=== PATIENT | male | born 1945 | race Caucasian/White ===

== ENCOUNTER → 2016-06-23 | Outpatient (CLI) | payer MEDICARE ==
[2016-06-23 10:17] LABS: Blood Urea Nitrogen 18 mg/dL (9-20); Non-African American GFR(MDRD) >60 (>60 ml/min/1.73 sqM)
--- NOTE | 2016-06-23 11:01 | CT ---
CTA abdominal aorta with 3-D reconstruction HISTORY: Renal artery aneurysm Contrast: Omni 350/100ml injected. COMPARISON: 04/24/2014 Contrast CTA of the abdominal aorta was performed from the lung apex through t he base of the pelvis. 3-D reconstruction imaging obtained at a separate workstation. CONTRAST CT ABDOMEN FINDINGS- ABDOMINAL AORTA: No evidence for abdominal aortic aneurysm. No dissection. Iliac vessels are ectatic with atherosclerotic changes. Atherosclerotic change of the celiac axis and SMA noted. LIVER/GB- multiple hepatic cysts noted. Gallbladder unremarkable. PANCREAS- No significant abnormality is seen. SPLEEN- No significant abnormality is seen. ADRENALS- No significant abnormality is seen. KIDNEYS/BLADDER- calcified mass retroperitoneum on the right is stable unchanged in size or morpholog y measuring 5.6 x 6.4 cm. Thrombosed renal artery aneurysm in the differential. Kidneys perfuse stephon lly. No evidence for renal mass or hydronephrosis. BOWEL- diverticulosis without diverticulitis. Small bowel normal caliber. GENTIAL ORGANS: Prostatectomy changes. LYMPH NODES- No greater than 1cm abdominal or pelvic lymph nodes are appreciated. OSSEOUS STRUCTURES- degenerative and hypertrophic changes lumbar spine. Sacroiliitis changes noted. F acet arthropathy seen. IMPRESSION- 1. 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
== END | disposition home or self-care (01) ==
LOC: RADCTMAIN 09:40
PROVIDERS: ATTEND Thoracic Surgery (Cardiothoracic Vascular Surgery)
DX: I72.2 Aneurysm of renal artery (principal)
CPT/HCPCS: 82565; 84520; 74175; 36415; Q9967

== ENCOUNTER 2016-07-01 23:22 | Emergency (ER) | payer MEDICARE, OTHER ==
[2016-07-01 23:34] VITALS: BP 167/85; PULSE 51; RESP 18; TEMP 97.7
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
== END 2016-07-01 23:50 | disposition home or self-care (01) ==
LOC: EC 23:22
DX: R42 Dizziness and giddiness (principal); I10 Essential (primary) hypertension; I50.9 Heart failure, unspecified; I25.2 Old myocardial infarction; E78.5 Hyperlipidemia, unspecified; G20 Parkinson's disease; Z86.73 Personal history of transient ischemic attack (TIA), and cerebral infarction without residual deficits; I25.10 Atherosclerotic heart disease of native coronary artery without angina pectoris; Z85.46 Personal history of malignant neoplasm of prostate; Z95.0 Presence of cardiac pacemaker; Z79.82 Long term (current) use of aspirin; F17.200 Nicotine dependence, unspecified, uncomplicated; Z79.899 Other long term (current) drug therapy; Z88.8 Allergy status to other drugs, medicaments and biological substances
CPT/HCPCS: 93005; 99284

== ENCOUNTER 2016-09-19 14:46 | Emergency (ER) | payer MEDICARE, OTHER ==
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
[2016-09-19 16:35] VITALS: BP 130/68; PULSE 84; RESP 20; TEMP 98
== END 2016-09-19 16:20 | disposition home or self-care (01) ==
LOC: EC 14:46
DX: S50.12XA Contusion of left forearm, initial encounter (principal); I10 Essential (primary) hypertension; E78.5 Hyperlipidemia, unspecified; I25.2 Old myocardial infarction; F17.200 Nicotine dependence, unspecified, uncomplicated; Z85.9 Personal history of malignant neoplasm, unspecified; Z86.73 Personal history of transient ischemic attack (TIA), and cerebral infarction without residual deficits; Z79.82 Long term (current) use of aspirin; Z79.899 Other long term (current) drug therapy; Z88.8 Allergy status to other drugs, medicaments and biological substances; W22.09XA Striking against other stationary object, initial encounter; Y93.89 Activity, other specified
CPT/HCPCS: 99282

== ENCOUNTER → 2016-12-02 | Outpatient (CLI) | payer MEDICARE, OTHER ==
--- NOTE | 2016-12-02 10:57 | XR ---
EXAMINATION TYPE: XR lumbar spine 2 or 3V DATE OF EXAM: 12/02/2016 CLINICAL HISTORY: pain TECHNIQUE: Three views of the lumbar spine are submitted. COMPARISON: 12/13/14 FINDINGS: There are 5 lumbar type vertebral bodies identified. The lumbar spine shows satisfactory alignment w ithout evidence of acute fracture or dislocation. Vertebral body heights are within normal limits. Mild degenerative disc space narrowing L4-5 and L5-S1 with facet joint arthropathy. Aneurysm within t he infrarenal abdominal aorta the L2 level. This measures of 4.4 cm AP dimension and appears essentia lly unchanged. IMPRESSION: No acute fracture or dislocation is seen in the lumbar spine. ICD 10 NO FRACTURE, INITIAL EVALUATION
== END | disposition home or self-care (01) ==
LOC: RADXRMAIN 10:36
PROVIDERS: ATTEND Family Medicine
DX: M54.5 Low back pain (principal)
CPT/HCPCS: 72100

== ENCOUNTER 2017-03-20 17:18 | Emergency (ER) | payer MEDICARE, OTHER ==
[2017-03-20 17:38] VITALS: BP 125/76; PULSE 80; RESP 18; TEMP 97.8
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
== END 2017-03-20 18:08 | disposition home or self-care (01) ==
LOC: EC 17:18
DX: K43.9 Ventral hernia without obstruction or gangrene (principal); E78.5 Hyperlipidemia, unspecified; I10 Essential (primary) hypertension; G20 Parkinson's disease; I25.2 Old myocardial infarction; F17.200 Nicotine dependence, unspecified, uncomplicated; Z86.73 Personal history of transient ischemic attack (TIA), and cerebral infarction without residual deficits; Z98.890 Other specified postprocedural states; Z90.49 Acquired absence of other specified parts of digestive tract; Z85.46 Personal history of malignant neoplasm of prostate; Z88.8 Allergy status to other drugs, medicaments and biological substances; Z79.01 Long term (current) use of anticoagulants; Z79.899 Other long term (current) drug therapy
CPT/HCPCS: 99283

== ENCOUNTER 2017-07-13 07:57 | Day surgery (SDC) | payer MEDICARE, OTHER ==
[2017-07-12 09:20] VITALS: BMI 26.6
[~2017-07-13 07:57] MED LIST: LACTATED RINGERS 1,000 ML IV SCH
[2017-07-13 09:18] VITALS: TEMP 97.8
[2017-07-13] MEDS ORDERED: LIDOCAINE 1% INJ 10MG/ML (20 ML MDV) ONE (09:28)
[2017-07-13] MEDS ORDERED: PROPOFOL 10 MG/ML 20 ML VIAL IV ONE (09:28)
[2017-07-13] MEDS ORDERED: GLYCOPYRROLATE 0.2 MG/ML 2 ML VIAL ONE (09:28)
[2017-07-13] MEDS ORDERED: ePHEDrine SULFATE/0.9% NACL/PF 50 MG/5 ML SYRINGE IV ONE (09:28)
[2017-07-13] MEDS ORDERED: GLUCAGON 1 MG/ML VIAL ONE (09:28)
--- NOTE | 2017-07-13 10:03 | P.OP ---
Date of Procedure: 07/13/17 Preoperative Diagnosis: Change in bowel habits Postoperative Diagnosis: Small polyp at 20 cm fulgurated Large internal hemorrhoids Diverticuli Procedure(s) Performed: Colonoscopy Anesthesia: MAC Surgeon: Martha Guzman Estimated Blood Loss (ml): 0 IV fluids (ml): 250 Pathology: none sent Condition: stable Disposition: PACU Indications for Procedure: Change in bowel habits Operative Findings: Small polyp at 20 cm, diverticuli, internal hemorrhoids Description of Procedure: Patient was taken to the endoscopy suite and following sedation rectal exam was performed. Patient was noted to have good sphincter tone no masses. Colonoscope was passed through the anus into the rectum. Was passed through the sigmoid colon up to splenic flexure transverse colon hepatic flexure right colon down to the area of the cecum. Circumferential observation mucosa did not reveal any lesions of concern in the cecum or right colon. No lesions of concern were identified in the transverse colon. As the scope was withdrawn patient was noted to have diverticuli in the sigmoid colon. At 20 cm a small polyp was identified this was fulgurated but unable to be retrieved. Scope was brought down into the rectum where it was retroflexed internal hemorrhoids identified. Approximately 10 minutes were taken to withdraw the scope and fulgurated the polyp. Impression/plan: 1. Diverticuli 2. Large internal hemorrhoids 3. Polypoid change at 20 cm fulgurated Plan: 1. Conservative management of diverticuli and hemorrhoids 2. Repeat scope in 2-3 years secondary to polypoid change
--- NOTE | 2017-07-13 10:04 | P.DS ---
Providers Attending physician: Martha Guzman Primary care physician: Jovon Latham Plan - Discharge Summary New Discharge Prescriptions: No Action Primidone [Mysoline] 75 mg PO HS Hydrochlorothiazide 25 mg PO QAM Carbidopa/Levodopa [Sinemet 25-100 mg] 1 tab PO BID Simvastatin [Zocor] 40 mg PO HS Enalapril [Vasotec] 10 mg PO QAM Apixaban [Eliquis] 5 mg PO BID Omeprazole [PriLOSEC] 40 mg PO QAM Discharge Medication List Carbidopa/Levodopa [Sinemet 25-100 mg] 1 tab PO BID 06/17/15 [History] Enalapril [Vasotec] 10 mg PO QAM 06/17/15 [History] Hydrochlorothiazide 25 mg PO QAM 06/17/15 [History] Primidone [Mysoline] 75 mg PO HS 06/17/15 [History] Simvastatin [Zocor] 40 mg PO HS 06/17/15 [History] Apixaban [Eliquis] 5 mg PO BID 03/20/17 [History] Omeprazole [PriLOSEC] 40 mg PO QAM 04/19/17 [History] Follow up Appointment(s)/Referral(s): Martha Guzman MD [STAFF PHYSICIAN] - 1 Week Activity/Diet/Wound Care/Special Instructions: Do not drive today May start Eliquis tomorrow Discharge Disposition: HOME SELF-CARE
[2017-07-13 10:19] VITALS: RESP 18
[2017-07-13 11:00] VITALS: BP 122/72; PULSE 74
== END 2017-07-13 11:02 | disposition home or self-care (01) ==
LOC: ORWHC2ENDO 07:57
PROVIDERS: ATTEND Surgery
DX: K63.5 Polyp of colon (principal); K64.8 Other hemorrhoids; K57.30 Diverticulosis of large intestine without perforation or abscess without bleeding; I10 Essential (primary) hypertension; J44.9 Chronic obstructive pulmonary disease, unspecified; H91.90 Unspecified hearing loss, unspecified ear; M19.90 Unspecified osteoarthritis, unspecified site; K21.9 Gastro-esophageal reflux disease without esophagitis; E78.5 Hyperlipidemia, unspecified; I25.10 Atherosclerotic heart disease of native coronary artery without angina pectoris; G20 Parkinson's disease; Z79.82 Long term (current) use of aspirin; Z79.01 Long term (current) use of anticoagulants; Z79.899 Other long term (current) drug therapy; Z88.8 Allergy status to other drugs, medicaments and biological substances; Z87.891 Personal history of nicotine dependence; Z86.73 Personal history of transient ischemic attack (TIA), and cerebral infarction without residual deficits; Z85.46 Personal history of malignant neoplasm of prostate; Z95.0 Presence of cardiac pacemaker
CPT/HCPCS: 45388; J1610; J2001; J2704; 45385

== ENCOUNTER → 2017-07-30 | Outpatient (CLI) | payer MEDICARE, OTHER ==
--- NOTE | 2017-07-31 11:09 | CT ---
EXAMINATION TYPE: CT abdomen pelvis w con DATE OF EXAM: 07/30/2017 COMPARISON: Prior CT angiogram of the abdomen 06/23/[address] 11/20/2010 HISTORY: Upper abdominal pain x [address] DLP: 823.2 mGycm Automated exposure control for dose reduction was used. TECHNIQUE: Helical acquisition of images from the lung bases through the pelvis have been completed. CONTRAST: Performed with Oral Contrast and with IV Contrast, patient injected with 100 mL of Isovue M300. FINDINGS: Lead is present in the right ventricle. There are coronary artery calcifications. There is a small hiatal hernia. LUNG BASES: Emphysematous changes are present, there are interstitial changes with honeycombing and s ubpleural locations. No pleural or pericardial effusion. AORTA: No significant abnormality is appreciated. LIVER/GB: Cystic foci are scattered within the liver similar to prior exam. Gallbladder is normal. PANCREAS: No significant abnormality is seen. SPLEEN: No significant abnormality is seen. ADRENALS: No significant abnormality is seen. KIDNEYS: No significant interval change is seen. The retroperitoneal region posterior to the inferior vena cava and adjacent to the aorta again shows a hyperdense focus measuring approximately 5.5 x 6 x 3.3 cm is again noted and is stable. REPRODUCTIVE ORGANS: Probable prior prostatectomy, multiple metallic densities are present deep withi n the pelvis which may represent clips. BOWEL: Multiple small bowel folds show wall thickening in the upper abdomen. There is a tubular stru cture which has been present dating to exam of 2010 within the mesenteric region anterior to the aort a and inferior vena cava and extending into the right lower quadrant which does not fill with contras t and is blind-ending in the midline, distally the lesion has increased in size to approximately 3.2 cm and shows a cystic appearance distally. Diverticular change again noted in the sigmoid colon, diff icult to exclude a mucosal lesion. Suspect there is been right inguinal hernia repair. Colonic interp osition noted anterior to the liver. The stomach again shows questionable abnormal wall thickening. FREE AIR: No Free Air visible. ASCITES: None visible. PELVIC ADENOPATHY: None visualized. RETROPERITONEAL ADENOPATHY: No Retroperitoneal Adenopathy visible. URINARY BLADDER: No significant abnormality is seen. OSSEOUS STRUCTURES: Degenerative disc change at facet arthropathy noted within the lumbar spine.. IMPRESSION: CONSIDER GASTRO-ENTERITIS, ABNORMAL WALL THICKENING OF THE STOMACH MAY BE PRESENT, CONSIDER ENDOSCOP Y. INTERSTITIAL LUNG DISEASE AND EMPHYSEMA. STABLE CALCIFIED PROBABLE RENAL ARTERY ANEURYSM. TUBULAR STRUCTURE AGAIN NOTED WITHIN THE MESENTERY COULD REPRESENT ENTERIC DUPLICATION CYST, MECKEL'S DIVERTI CULUM, MESENTERIC CYST.
== END ==
LOC: RADCTMAIN 14:50
PROVIDERS: ATTEND Surgery
DX: R10.10 Upper abdominal pain, unspecified (principal); J98.2 Interstitial emphysema
CPT/HCPCS: 82565; 84520; 74177; 36415; Q9967

== ENCOUNTER 2017-08-04 03:09 | Emergency (ER) | payer MEDICARE, OTHER ==
[2017-08-04 03:14] VITALS: TEMP 97.7
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
[2017-08-04 03:43] LABS: Basophils # (A) 0.1 k/uL (0-0.2); Basophils % (A) 1 %; Eosinophils # (A) 0.3 k/uL (0-0.7); Eosinophils % (A) 3 %; HCT 47.9 % (39.0-53.0); HGB 16.1 gm/dL (13.0-17.5); Lymphocytes % (A) 24 %; MCH 30.1 pg (25.0-35.0); MCHC 33.7 g/dL (31.0-37.0); MCV 89.4 fL (80.0-100.0); Mean Platelet Volume 8.4; Monocytes # (A) 0.6 k/uL (0-1.0); Monocytes % (A) 7 %; Neutrophils # (A) 5.4 k/uL (1.3-7.7); Neutrophils % (A) 63 %; Platelet Count 206 k/uL (150-450); RBC 5.36 m/uL (4.30-5.90); RDW 12.8 % (11.5-15.5); WBC 8.5 k/uL (3.8-10.6)
[2017-08-04 03:52] LABS: ALT 19 U/L (21-72); AST 20 U/L (17-59); Albumin 3.8 g/dL (3.5-5.0); Alkaline Phosphatase 110 U/L (38-126); Anion Gap 14 mmol/L; Blood Urea Nitrogen 14 mg/dL (9-20); Calcium 9.5 mg/dL (8.4-10.2); Carbon Dioxide 22 mmol/L (22-30); Chloride 105 mmol/L (98-107); Glucose 89 mg/dL (74-99); INR 1.1 (<1.2); Magnesium 2.1 mg/dL (1.6-2.3); Partial Thromboplastin Time 24.5 sec (22.0-30.0); Potassium 4.1 mmol/L (3.5-5.1); Prothrombin Time 10.3 sec (9.0-12.0); Sodium 141 mmol/L (137-145); Total Bilirubin 0.3 mg/dL (0.2-1.3); Total Protein 6.7 g/dL (6.3-8.2)
--- NOTE | 2017-08-04 03:58 | XR ---
EXAM: XR Chest, 2 Views CLINICAL HISTORY: dysrhythmia TECHNIQUE: Frontal and lateral views of the chest. COMPARISON: No recent priors. FINDINGS: Cardiac silhouette is within normal limits. Mild central vascular congestion. Pacemaker device. Hyperinflated lungs. No focal consolidative process or pleural effusions. Senescent changes. No aggressive osseous abnormalities. IMPRESSION: Chronic COPD changes. Mild central vascular congestion. Pacemaker device.
[2017-08-04 04:09] LABS: T4, Free (Free Thyroxine) 1.03 ng/dL (0.78-2.19)
[2017-08-04 04:32] LABS: Troponin I 0.019 ng/mL (0.000-0.034)
[2017-08-04 05:19] VITALS: BP 119/79; PULSE 61; RESP 18
== END 2017-08-04 05:21 | disposition home or self-care (01) ==
LOC: EC 03:09
DX: R00.2 Palpitations (principal); E78.5 Hyperlipidemia, unspecified; I10 Essential (primary) hypertension; I25.2 Old myocardial infarction; F17.200 Nicotine dependence, unspecified, uncomplicated; Z85.46 Personal history of malignant neoplasm of prostate; Z95.0 Presence of cardiac pacemaker; Z86.73 Personal history of transient ischemic attack (TIA), and cerebral infarction without residual deficits; Z79.01 Long term (current) use of anticoagulants; Z79.899 Other long term (current) drug therapy; Z88.8 Allergy status to other drugs, medicaments and biological substances
CPT/HCPCS: 36415; 71046; 80053; 82550; 82553; 83735; 84439; 84443; 84481; 84484; 85025; 85610; 85730; 93005; 99285

== ENCOUNTER → 2017-10-12 | Outpatient (CLI) | payer MEDICARE, OTHER ==
[2017-10-12 10:31] LABS: ALT 18 U/L (21-72); AST 17 U/L (17-59); Cholesterol 128 mg/dL (<200); HDL Cholesterol 48 mg/dL (40-60); LDL Cholesterol,Calculated 69 mg/dL (0-99); Triglycerides 57 mg/dL (<150)
== END | disposition home or self-care (01) ==
LOC: LABWHC1 09:00
PROVIDERS: ATTEND Internal Medicine Cardiovascular Disease
DX: E78.2 Mixed hyperlipidemia (principal)
CPT/HCPCS: 36415; 80061; 84450; 84460

== ENCOUNTER → 2017-12-20 | Outpatient (CLI) | payer MEDICARE, OTHER ==
--- NOTE | 2017-12-20 12:44 | FL ---
Modified barium swallow. HISTORY: Dysphagia. Modified barium swallow was performed with the department of speech pathology. The patient was prese nted with various consistencies of barium. There is evidence of aspiration with thin liquid barium. Full report is to follow from the department of speech pathology. Impression: Aspiration.
== END ==
LOC: RADFLMAIN 11:27
PROVIDERS: ATTEND Psychiatry & Neurology Neurology
DX: G20 Parkinson's disease (principal)
CPT/HCPCS: 74230

== ENCOUNTER → 2018-03-16 | Outpatient (CLI) | payer MEDICARE, OTHER ==
--- NOTE | 2018-03-16 13:19 | CT ---
EXAMINATION TYPE: CT soft tissue neck w con DATE OF EXAM: 03/16/2018 HISTORY: Pharyngeal Dysphagia COMPARISON: CT neck April 19, 2015. CT DLP: 314.6 mGycm. Automated Exposure Control for Dose Reduction was Utilized. TECHNIQUE: CT scan of the neck is performed with IV Contrast, patient injected with 100 mL of Isovue 300, axial images are obtained, coronal and sagittal reformatted images are reviewed. FINDINGS: Airway: Visualized lungs redemonstrate moderate underlying emphysematous change with large bulla and blebs in the left lung apex redemonstrated. Parotid/submandibular glands: No gross abnormality seen. Carotid/Vascular Structures: There is mild to moderate mixed plaque centered at bilateral carotid bul bs without significant stenosis. Osseous Structures: There is persistent severe multilevel anterior spurring in the cervical spine whi ch is straightened. Mild multilevel disc space narrowing is redemonstrated. Multilevel bilateral unco vertebral facet degenerative changes, left greater than right are redemonstrated. Other: There is partial visualization of dual lead pacemaker redemonstrated. Mild to moderate mucosal thickening in visualized portion of right maxillary sinus is now noted. IMPRESSION: No new suspicious mass or adenopathy is seen to account for patient's symptoms of pharyn geal dysphagia.
== END | disposition home or self-care (01) ==
LOC: RADCTMAIN 10:31
PROVIDERS: ATTEND Psychiatry & Neurology Neurology
DX: R13.13 Dysphagia, pharyngeal phase (principal)
CPT/HCPCS: 70491; 36415; Q9967

== ENCOUNTER → 2018-03-16 | Outpatient (CLI) | payer MEDICARE, OTHER ==
[2018-03-16 11:16] LABS: Blood Urea Nitrogen 17 mg/dL (9-20)
--- NOTE | 2018-03-16 13:11 | CT ---
EXAMINATION TYPE: CT abdomen pelvis w con DATE OF EXAM: 03/16/2018 COMPARISON: 07/30/2017 HISTORY: Pain CONTRAST: I300/100ml injected. Contrast-enhanced CT of the abdomen and pelvis was performed. FINDINGS: LUNG BASES-: No visible nodule. No infiltrate. LIVER/GB: No calcified gallstones. No solid space occupying hepatic lesion. Stable hepatic cysts. Biliary tree is of normal caliber. PANCREAS: No inflammation. No distinct mass. SPLEEN: No splenic enlargement. No lesion seen. ADRENALS: No nodule. No thickening. KIDNEYS/BLADDER: No hydronephrosis. No nephrolithiasis. No distinct renal mass. Urinary bladder g rossly unremarkable. BOWEL: Normal appendix. Normal bowel caliber. No inflammation. 2.8 cm cystic structure within the s mall bowel mesentery appears to arise from and adjacent small bowel loop and could reflect a divertic ulum, Meckel's diverticulum, mesenteric cyst or enteric duplication cyst. Overall no change identifie d. Moderate sigmoid diverticulosis without diverticulitis. GENITAL ORGANS: No gross abnormality. LYMPH NODES: No greater than 1cm abdominal or pelvic lymph nodes are appreciated. AORTA: No significant abnormality. OSSEOUS STRUCTURES: No significant abnormality is seen. OTHER: The retroperitoneal region posterior to the inferior vena cava and adjacent to the aorta agai n shows a hyperdense focus measuring approximately 5.5 x 6 x 3.3 cm is again noted and is stable. IMPRESSION: 1. Stable cystic structure within the small bowel mesentery. 2. Stable hepatic cysts. 3. Sigmoid diverticulosis without diverticulitis.
== END | disposition home or self-care (01) ==
LOC: RADCTMAIN 10:25
PROVIDERS: ATTEND Family Medicine
DX: K57.30 Diverticulosis of large intestine without perforation or abscess without bleeding (principal); K76.89 Other specified diseases of liver; K63.89 Other specified diseases of intestine
CPT/HCPCS: 74177; 82565; 84520

== ENCOUNTER → 2018-03-30 | Outpatient (CLI) | payer MEDICARE, OTHER ==
--- NOTE | 2018-03-31 07:52 | CT ---
EXAMINATION TYPE: CT cervical spine wo con DATE OF EXAM: 03/30/2018 COMPARISON: None HISTORY: Pain Unenhanced CT of the cervical spine was performed with bone and soft tissue window settings submitted . Coronal and sagittal reconstruction is obtained. C2-3: Mild degenerative disc space narrowing. Mild posterior disc bulge. No herniation protrusion or central stenosis. Degenerative change of the cervical apophyseal joints resulting in moderate left-si ded foraminal encroachment. C3-4: Mild to moderate degenerative disc space narrowing. Posterior disc bulge that herniation protru chance or central stenosis. Degenerative change of the bilateral cervical apophyseal joints resulting i n moderate bilateral foraminal encroachment. Moderate anterior spondylotic spurring. C4-5: Moderate degenerative disc space narrowing. Posterior disc bulge with disc endplate complex. La rge anterior bridging spondylotic spur. No evidence for disc herniation or central stenosis. Bilatera l foraminal encroachment. C5-6: Moderate degenerative disc space narrowing. Posterior disc bulge with disc endplate complex. La rge anterior bridging spondylotic spur. No evidence for disc herniation. Borderline to mild central s tenosis difficult to exclude. Bilateral foraminal encroachment. C6-7:Mild to moderate degenerative disc space narrowing. Posterior disc bulge that herniation protrus ion or central stenosis. Degenerative change of the bilateral cervical apophyseal joints resulting in moderate bilateral foraminal encroachment. Moderate anterior spondylotic spurring. C7-T1: Mild degenerative disc space narrowing. Ventral spondylosis. No herniation protrusion or centr al stenosis. Apical emphysematous change. No fracture or subluxation. Normal alignment. IMPRESSION: 1. Multilevel degenerative disc disease with large anterior spondylotic spurs as noted above. 2. Multilevel foraminal encroachment. 3. Borderline to mild central stenosis at C5-6.
== END | disposition home or self-care (01) ==
LOC: RADCTMAIN 16:13
PROVIDERS: ATTEND Psychiatry & Neurology Neurology
DX: M48.02 Spinal stenosis, cervical region (principal); M50.31 Other cervical disc degeneration, high cervical region; M47.812 Spondylosis without myelopathy or radiculopathy, cervical region
CPT/HCPCS: 72125

== ENCOUNTER → 2018-06-02 | Outpatient (CLI) | payer MEDICARE, OTHER ==
--- NOTE | 2018-06-02 15:22 | CT ---
"EXAMINATION TYPE: CT abdomen pelvis wo con DATE OF EXAM: 06/02/2018 COMPARISON: 03/16/2018 HISTORY: Microscopic hematuria, bloating, prostate CT DLP: 786 mGycm Automated exposure control for dose reduction was used. TECHNIQUE: Helical acquisition of images was performed from the lung bases through the pelvis. FINDINGS: Lack of intravenous and oral contrast limit evaluation of the hollow and solid viscera. LUNG BASES: Trace amount of pericardial fluid is seen. LIVER/GB: Scattered hepatic cysts and other lesions that are too small to accurately characterize but favored to represent stable cysts are seen, similar to the exam of 03/16/2018 although better appreci ated on the prior given intravenous contrast on that examination. No new suspicious hepatic lesion is seen. PANCREAS: Unremarkable unenhanced morphology. No discrete ductal dilatation. SPLEEN: No significant abnormality is seen. ADRENALS: No significant abnormality is seen. KIDNEYS: Numerous renal arterial calcifications are seen. No hydronephrosis or nephrolithiasis. No ur inary bladder calculi. FREE AIR: No free air is visualized RETROPERITONEAL: There is redemonstration of a hyperdense irregularly marginated but primarily ovoid structure situated between the abdominal aorta and inferior vena cava on series [address] able in size from the prior exams measuring 5.1 x 3.1 x 6.0 cm. This previously measured 5.5 5.5 x 3. 3 x 6.0 cm on the exam of 03/16/2018. REPRODUCTIVE ORGANS: Prostate gland is surgically absent. URINARY BLADDER: No significant abnormality is seen. OSSEOUS STRUCTURES: There is diffuse mottling of the bone marrow throughout the entirety of the osse ous structures most compatible with diffuse osseous metastasis. BOWEL: There is a serpiginous a multiloculated abnormal structure within the central mesentery beginning ant erior to the transverse third portion of the duodenum with a bilobed cystic component the larger comp onent measuring 3.3 x 3.6 cm having enlarged in the interim in comparison to exam of 03/16/2018 and in terval development of a thick wall measuring 5 mm. This continues inferiorly appearing to be adherent to a loop of small bowel that demonstrates surrounding inflammatory change and multiple surrounding centrally fluid attenuated small diverticuli on axial image 84 with the appearance of bowel wall thic kening such as on image 78. 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 Right lower quadrant fluid collection may be external to the colon seen distally to the terminal ileu m measuring at least 5.2 x 2.8 cm on axial image 77 and seen on coronal image 31. There is incomplete distention of the stomach and therefore suboptimal evaluation given lack of oral contrast. Numerous sigmoid colonic diverticula are seen as well as other scattered pancolonic diverti cula. VASCULATURE: There is a focal chronic infrarenal calcified dissection flap without aneurysmal dilatat ion of the abdominal aorta. There is moderate to severe calcific atheromatous plaquing of the abdomin al aorta and its branches. IMPRESSION: 1. MARKEDLY ABNORMAL SERPIGINOUS STRUCTURE OF THE CENTRAL MESENTERY WITH MULTIPLE CYSTIC DIVERTICULA, INTERVAL ENLARGEMENT OF THE MESENTERY CYSTIC COMPONENT SEEN ON THE PRIOR EXAM OF 03/16/2018, AND SURR OUNDING INFLAMMATORY FAT STRANDING AND ADDITIONAL RIGHT LOWER QUADRANT FLUID COLLECTION INTIMATELY SOCIATED WITH THE CECUM AND DISTAL ILEUM. CT WITH ORAL CONTRAST IS RECOMMENDED TO ASSESS FOR ANY CONT INUITY WITH BOWEL GIVEN ITS SERPIGINOUS STRUCTURE. HOWEVER FINDINGS COULD RELATE TO SMALL BOWEL NEOPL ASM, MESENTERIC NEOPLASM OR SMALL BOWEL ACUTE DIVERTICULITIS. RIGHT LOWER QUADRANT FLUID COLLECTION C OULD ALSO BE ASSESSED ON THIS EXAMINATION. 2. 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 A [place] level critical message alert has been initiated for Jovon Latham MD via the [employer] 36 0 | Critical Results System on 06/02/2018 3:19 PM. This message alert has been sent to Jovon Latham MD via the preferences provided by the clinician for the receipt of Radiology Critical Findings. [facility] ID [id number]."
== END ==
LOC: RADCTMAIN 11:01
PROVIDERS: ATTEND Family Medicine
DX: K92.89 Other specified diseases of the digestive system (principal); I71.02 Dissection of abdominal aorta; Z88.8 Allergy status to other drugs, medicaments and biological substances
CPT/HCPCS: 74176

== ENCOUNTER → 2018-06-03 | Outpatient (CLI) | payer MEDICARE, OTHER ==
[2018-06-03 11:40] LABS: Blood Urea Nitrogen 18 mg/dL (9-20)
[2018-06-03 11:50] LABS: Basophils # (A) 0.1 k/uL (0-0.2); Basophils % (A) 1 %; Eosinophils # (A) 0.1 k/uL (0-0.7); Eosinophils % (A) 2 %; HGB 16.7 gm/dL (13.0-17.5); Lymphocytes # (A) 1.7 k/uL (1.0-4.8); Lymphocytes % (A) 23 %; MCH 31.1 pg (25.0-35.0); MCHC 33.3 g/dL (31.0-37.0); MCV 93.3 fL (80.0-100.0); Mean Platelet Volume 7.9; Monocytes # (A) 0.4 k/uL (0-1.0); Monocytes % (A) 5 %; Neutrophils # (A) 4.8 k/uL (1.3-7.7); Neutrophils % (A) 67 %; Platelet Count 200 k/uL (150-450); RBC 5.36 m/uL (4.30-5.90); RDW 13.5 % (11.5-15.5); WBC 7.2 k/uL (3.8-10.6)
[2018-06-03 11:55] LABS: ALT 21 U/L (21-72); AST 23 U/L (17-59); Albumin 4.3 g/dL (3.5-5.0); Alkaline Phosphatase 132 U/L (38-126); Amylase 49 U/L (30-110); Anion Gap 6 mmol/L; Calcium 9.5 mg/dL (8.4-10.2); Carbon Dioxide 28 mmol/L (22-30); Chloride 107 mmol/L (98-107); Glucose 94 mg/dL (74-99); Lipase 76 U/L (23-300); Potassium 4.5 mmol/L (3.5-5.1); Sodium 141 mmol/L (137-145); Total Bilirubin 0.6 mg/dL (0.2-1.3); Total Protein 7.3 g/dL (6.3-8.2)
[2018-06-03 12:00] LABS: Appearance,Urine Clear (Clear); Bilirubin,Urine Negative (Negative); Blood,Urine Negative (Negative); Color,Urine Light Yellow; Glucose,Urine (UA) Negative (Negative); Ketones,Urine Negative (Negative); Leukocyte Esterase,Urine Negative (Negative); Nitrite,Urine Negative (Negative); PH, Urine 6.5 (5.0-8.0); Protein,Urine Negative (Negative); Specific Gravity,Urine 1.005 (1.001-1.035); Urobilinogen,Urine <2.0 mg/dL (<2.0)
--- NOTE | 2018-06-03 13:18 | CT ---
EXAMINATION TYPE: CT abdomen pelvis w con DATE OF EXAM: 06/03/2018 COMPARISON: 06/02/2018 INDICATION: History of prostate cancer DLP: 831.9 mGycm, Automated exposure control for dose reduction was used. CONTRAST: 100 mL of Isovue 300. Study performed with Oral Contrast TECHNIQUE: Axial images were obtained from above the diaphragm to the pubic rami in the axial plane a t 5 mm thick sections. Reconstructed images are reviewed on the computer in the coronal plane. FINDINGS: Limited CT sections are obtained the lung bases. The lung bases are clear. CT ABDOMEN: There is a very hyperdense area adjacent to the aorta medial to the inferior vena cava me asuring 3.1 x 5.0 cm. This was present on the previous examination. This may has some peripheral calc ification. This is been present on multiple prior examinations. Liver: There are multiple scattered hypodensities within the liver. A larger area measuring 1.5 cm 8. 2 cm area measures 13 Hounsfield units. Others may be too small to classify. Findings are likely rela kole to cysts. Spleen: Normal Pancreas: Normal Adrenal glands: The adrenal glands are normal. Gallbladder: Normal Kidneys: No masses are evident. No hydronephrosis is present. Couple of tiny cortical renal cysts o n the mid posterior right kidney. Delayed images were obtained through the kidneys, which remain unr emarkable. Aorta: Vascular calcification is within the aorta. Inferior vena cava: Normal. CT PELVIS: Loops of bowel within the abdomen and pelvis are normal. There are loops of bowel which are incom pletely distended or lack oral contrast limiting their evaluation. Scattered diverticuli are within t he sigmoid colon. There is a tubular structure within the right midabdomen estimated to measure 2.7 cm transverse by ap proximately 8.8 cm in maximal length. This is changed configuration and location from the comparison study. The multiple cystic areas in the large or dilated rounded density is not evident this time. Appendix: Not identified. No suspicious tubular structures or inflammatory changes are evident. Urinary bladder: Normal. Genitourinary structures: Enlarged prostate is not identified. Correlate with the surgical history fo r prostatectomy. Osseous structures: No suspicious lytic or sclerotic lesions. Marked facet hypertrophy is present L4- 5 L5-S1. IMPRESSIONS: 1. Stable hyperdense area between the aorta and inferior vena cava. This is of unknown etiology. 2. Serpiginous structure within the right midabdomen and upper pelvis with some central hypodensity t his is changed in configuration but does not have oral contrast within. Has there been prior bowel contreras rgery? Contrast passes through small bowel to the rectum
[2018-06-07 10:26] LABS: Chromogranin A 470 ng/mL (0-95)
== END | disposition home or self-care (01) ==
LOC: RADCTMAIN 10:53
PROVIDERS: ATTEND Physician Assistant
DX: C79.51 Secondary malignant neoplasm of bone (principal); C7A.00 Malignant carcinoid tumor of unspecified site; R10.33 Periumbilical pain; Z12.9 Encounter for screening for malignant neoplasm, site unspecified
CPT/HCPCS: 86316; 84153; 80053; 82378; 82150; 83690; 85025; 81003; 86301; 74177; 36415; Q9967

== ENCOUNTER → 2018-06-15 | Outpatient (CLI) | payer MEDICARE, OTHER ==
--- NOTE | 2018-06-15 17:37 | NM ---
EXAMINATION TYPE: NM bone scan whole body DATE OF EXAM: 06/15/2018 COMPARISON: NONE HISTORY: Screening for malignant neoplasm Delayed whole-body scanning was performed following the injection of 23.4 mCi Tc 99m MDP. Images wer e acquired 3 hours post injection. FINDINGS: There is diffuse increased uptake at the bilateral knees and at the right ankle. There is also radiot racer accumulation in the region of the bilateral elbows bilateral wrists and within the metacarpal p halangeal joint spaces. These areas may be degenerative in nature. There is a small focus of radiotracer accumulation at the anterior left sixth rib. This could be post traumatic in nature. Focal suspicious hot foci are not identified. No suspicious photopenic defects are evident. Spot imaging is performed over the pelvis and thorax. No suspicious radiotracer accumulation is ident ified. IMPRESSION: 1. No suspicious radiotracer accumulation to suggest metastatic disease. 2. Uptake at various joints discussed above most likely degenerative in nature.
== END | disposition home or self-care (01) ==
LOC: RADNMMAIN 11:25
PROVIDERS: ATTEND Family Medicine
DX: C79.51 Secondary malignant neoplasm of bone (principal)
CPT/HCPCS: 78306; A9503

== ENCOUNTER 2018-08-30 19:21 | Emergency (ER) | payer MEDICARE, OTHER ==
[2018-08-30 19:30] VITALS: RESP 18
[2018-08-30 20:20] LABS: ALT 27 U/L (21-72); AST 19 U/L (17-59); Albumin 4.2 g/dL (3.5-5.0); Alkaline Phosphatase 108 U/L (38-126); Anion Gap 9 mmol/L; Blood Urea Nitrogen 17 mg/dL (9-20); Calcium 9.5 mg/dL (8.4-10.2); Carbon Dioxide 24 mmol/L (22-30); Chloride 106 mmol/L (98-107); INR 1.1 (<1.2); Partial Thromboplastin Time 26.1 sec (22.0-30.0); Potassium 3.8 mmol/L (3.5-5.1); Prothrombin Time 11.2 sec (9.0-12.0); Sodium 139 mmol/L (137-145); Total Bilirubin 0.5 mg/dL (0.2-1.3)
[2018-08-30 20:24] LABS: Appearance,Urine Clear (Clear); Bilirubin,Urine Negative (Negative); Blood,Urine Negative (Negative); Color,Urine Yellow; Glucose,Urine (UA) Negative (Negative); Ketones,Urine Negative (Negative); Leukocyte Esterase,Urine Negative (Negative); Nitrite,Urine Negative (Negative); Protein,Urine Negative (Negative); Specific Gravity,Urine 1.018 (1.001-1.035); Urobilinogen,Urine <2.0 mg/dL (<2.0)
[2018-08-30 20:31] LABS: Basophils # (A) 0.1 k/uL (0-0.2); Basophils % (A) 1 %; Eosinophils # (A) 0.2 k/uL (0-0.7); Eosinophils % (A) 3 %; HGB 16.3 gm/dL (13.0-17.5); Lymphocytes # (A) 2.2 k/uL (1.0-4.8); Lymphocytes % (A) 29 %; MCH 30.3 pg (25.0-35.0); MCHC 33.9 g/dL (31.0-37.0); MCV 89.3 fL (80.0-100.0); Mean Platelet Volume 8.8; Monocytes # (A) 0.6 k/uL (0-1.0); Monocytes % (A) 8 %; Neutrophils # (A) 4.3 k/uL (1.3-7.7); Neutrophils % (A) 57 %; Platelet Count 215 k/uL (150-450); RBC 5.37 m/uL (4.30-5.90); RDW 13.8 % (11.5-15.5); WBC 7.6 k/uL (3.8-10.6)
--- NOTE | 2018-08-30 20:40 | XR ---
EXAMINATION: XR chest 3V DATE AND TIME: 08/30/2018 8:21 PM CLINICAL INDICATION: PHH; Chest Pain TECHNIQUE: 2 frontal and one lateral view COMPARISON: 08/04/2017 FINDINGS: Cardiac pacemaker and EKG leads. The lungs are clear. The pleural spaces are negative. The cardiac silhouette is mildly enlarged. The remainder of the mediastinal silhouette is unremarkabl e. The skeletal structures and soft tissues are negative for acute findings. IMPRESSION: NO ACUTE PROCESS.
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
[2018-08-30 21:03] VITALS: PULSE 56
[2018-08-30 22:09] VITALS: BP 155/84; TEMP 98
[2018-08-31 08:45] LABS: Glucose 95 mg/dL (74-99)
== END 2018-08-30 22:07 | disposition left against medical advice (07) ==
LOC: EC 19:21
DX: R07.89 Other chest pain (principal); R55 Syncope and collapse; E78.5 Hyperlipidemia, unspecified; I10 Essential (primary) hypertension; I25.2 Old myocardial infarction; G20 Parkinson's disease; H91.93 Unspecified hearing loss, bilateral; Z87.891 Personal history of nicotine dependence; Z88.8 Allergy status to other drugs, medicaments and biological substances; Z79.01 Long term (current) use of anticoagulants; Z79.899 Other long term (current) drug therapy; Z95.0 Presence of cardiac pacemaker; Z86.73 Personal history of transient ischemic attack (TIA), and cerebral infarction without residual deficits; Z85.46 Personal history of malignant neoplasm of prostate; Z98.890 Other specified postprocedural states; Z53.20 Procedure and treatment not carried out because of patient's decision for unspecified reasons; W01.0XXA Fall on same level from slipping, tripping and stumbling without subsequent striking against object, initial encounter; Y93.89 Activity, other specified; Y92.009 Unspecified place in unspecified non-institutional (private) residence as the place of occurrence of the external cause
CPT/HCPCS: 36415; 71046; 80053; 81003; 83735; 84484; 85025; 85610; 85730; 93005; 99284

== ENCOUNTER → 2018-12-22 | Outpatient (CLI) | payer MEDICARE, OTHER ==
[2018-12-22 10:20] LABS: African American GFR (CKD) >90 (>60 ml/min/1.73 sqM); Anion Gap 7 mmol/L; Blood Urea Nitrogen 18 mg/dL (9-20); Carbon Dioxide 28 mmol/L (22-30); Chloride 103 mmol/L (98-107); Potassium 3.9 mmol/L (3.5-5.1); Sodium 138 mmol/L (137-145)
[2018-12-22 10:43] LABS: HCT 48.1 % (39.0-53.0); MCH 31.1 pg (25.0-35.0); MCHC 33.4 g/dL (31.0-37.0); MCV 93.3 fL (80.0-100.0); Mean Platelet Volume 8.6; Platelet Count 200 k/uL (150-450); RBC 5.15 m/uL (4.30-5.90); RDW 15.5 % (11.5-15.5); WBC 7.8 k/uL (3.8-10.6)
== END | disposition home or self-care (01) ==
LOC: LABPAT 09:15
PROVIDERS: ATTEND Internal Medicine Cardiovascular Disease
DX: Z01.812 Encounter for preprocedural laboratory examination (principal); R07.2 Precordial pain
CPT/HCPCS: 36415; 80051; 82565; 84520; 85027

== ENCOUNTER 2018-12-26 08:39 | Day surgery (SDC) | payer MEDICARE, OTHER ==
[2018-12-21 14:03] VITALS: BMI 24.7
[~2018-12-26 08:39] MED LIST changes: +ALPRAZolam 0.25 MG TAB PO PRN; +ALPRAZolam 0.5 MG TAB PO PRN; +ASPIRIN 325 MG TAB PO STA; +ATORVASTATIN 80 MG TAB PO STA; -LACTATED RINGERS 1,000 ML IV SCH; +NITROGLYCERIN SL TABS 0.4 MG TAB SUBLINGUAL PRN; +SODIUM CHLORIDE 0.9% 1,000 ML in EMPTY BAG 1 BAG IV ONE
[2018-12-26 09:35] VITALS: TEMP 98
[2018-12-26 09:51] LABS: Prothrombin Time 10.9 sec (9.0-12.0)
[2018-12-26] MEDS ORDERED: LIDOCAINE 1% INJ 10MG/ML (20 ML MDV) ONE (10:19)
[2018-12-26] MEDS ORDERED: fentaNYL (PF) 50 MCG/ML 2 ML AMP ONE (10:19)
[2018-12-26] MEDS ORDERED: fentaNYL (PF) 50 MCG/ML 2 ML AMP IV ONE (10:27)
[2018-12-26] MEDS ORDERED: MIDAZOLAM PF (FBP) 2 MG/2 ML VIAL IVP ONE (10:27)
[2018-12-26] MEDS ORDERED: LIDOCAINE 1% INJ 10MG/ML (20 ML MDV) SQ ONE (10:28)
[2018-12-26] MEDS ORDERED: IOPAMIDOL-370 100ML BTL INJ ONE (10:45)
[2018-12-26] MEDS ORDERED: RX INFO: IV CONTRAST WAS GIVEN 1 EACH MISC MISCELLANE PRN (10:49)
[2018-12-26] MEDS ORDERED: SODIUM CHLORIDE 0.9% 1,000 ML IV SCH (11:00)
--- NOTE | 2018-12-26 11:24 | CC ---
CARDIAC CATHETERIZATION REPORT INDICATION: Unstable angina. REFERRING PHYSICIAN: Dr. Jovon Latham. PROCEDURE NOTE: After obtaining informed consent, left heart catheterization and coronary angiogram were performed via the right femoral artery using standard Sarina catheters. The patient tolerated the procedure well without any obvious immediate complication. A femoral angiogram was performed and Angio-Seal was deployed for hemostasis. Patient received moderate conscious sedation. Total sedation time was 14 minutes. FINDINGS: 1. HEMODYNAMICS: Left ventricular end-diastolic pressure is 12 to 14 mm. There is no significant gradient across the aortic valve. 2. LEFT VENTRICULOGRAM: Left ventriculogram is not performed. 3. ANGIOGRAPHIC DATA: Left Main Coronary Artery: Left main coronary artery appears calcified and shows mild atherosclerotic plaque in the ostial portion, but there is no significant stenosis. There is no ventricularization of the pressure wave pattern, divides into left anterior descending coronary artery and circumflex coronary artery that show mild to moderate nonobstructive atherosclerotic plaque through out. The right coronary artery is a large dominant vessel that is totally occluded in its midportion. There are extensive collaterals from the left to the distal RCA. CONCLUSIONS: 1. Chronically occluded mid RCA with [id number] collaterals. 2. [id number] nonobstructive disease involving circumflex coronary artery and LAD. PLAN: I reviewed angiographic data with the patient and advised him on optimal medical therapy. MMODL / IJN: [id number] /
[2018-12-26 14:16] VITALS: RESP 16
[2018-12-26 15:45] VITALS: BP 108/58; PULSE 54
== END 2018-12-26 15:59 | disposition home or self-care (01) ==
LOC: CATHCVL 08:39
PROVIDERS: ATTEND Internal Medicine Cardiovascular Disease
DX: I25.110 Atherosclerotic heart disease of native coronary artery with unstable angina pectoris (principal); I25.84 Coronary atherosclerosis due to calcified coronary lesion; I25.82 Chronic total occlusion of coronary artery; E78.5 Hyperlipidemia, unspecified; I49.5 Sick sinus syndrome; I48.3 Typical atrial flutter; Z95.0 Presence of cardiac pacemaker; Z79.01 Long term (current) use of anticoagulants; Z79.899 Other long term (current) drug therapy; Z91.09 Other allergy status, other than to drugs and biological substances
CPT/HCPCS: 93458; 85610; C1760; C1769; J2001; J3010; Q9967; J2250

== ENCOUNTER → 2019-01-30 | Outpatient (CLI) | payer MEDICARE, OTHER ==
--- NOTE | 2019-01-30 10:35 | XR ---
EXAMINATION TYPE: XR chest 2V DATE OF EXAM: 01/30/2019 COMPARISON: 08/30/2018 INDICATION: COPD TECHNIQUE: Frontal and lateral views of the chest are obtained. FINDINGS: The heart size is normal. The pulmonary vasculature is normal. The lungs are clear. There is hyperinflation flattening of diaphragms compatible COPD. Electronic de vice overlies left chest. IMPRESSION: 1. COPD. 2. No acute pulmonary process.
== END | disposition home or self-care (01) ==
LOC: RADXRMAIN 09:20
PROVIDERS: ATTEND Family Medicine
DX: J44.9 Chronic obstructive pulmonary disease, unspecified (principal)
CPT/HCPCS: 71046

== ENCOUNTER → 2019-02-20 | Outpatient (CLI) | payer MEDICARE, OTHER ==
--- NOTE | 2019-02-20 20:26 | CT ---
CTA of the brain HISTORY: Parkinson's, October 27 Helical acquisition through the [place] of [place] during dynamic administration 100 cc Isovue-370. Thr ee-dimensional reconstructions performed on an alternate workstation. Correlation CT brain same date Anterior posterior circulation is patent. The left vertebral artery is dominant. There is no evident aneurysm, dissection, or embolus. Left vertebral artery is markedly tortuous and crosses the midline with possible mass effect on the brainstem, local cranial nerves. IMPRESSION: Patent r[place] of [place]. Tortuous vertebral artery as described.
--- NOTE | 2019-02-20 20:31 | CT ---
EXAMINATION TYPE: CT brain wo con DATE OF EXAM: 02/20/2019 COMPARISON: CT brain 04/19/2015 HISTORY: Parkinson's. CT DLP: 1052.9 mGycm Automated exposure control for dose reduction was used. Helical imaging through the brain. FINDINGS: There are cerebral vascular calcifications present. There is no hemorrhage or hydrocephalus. Brain de nsity is within normal limits. Mild cortical atrophy is noted. The calvarium is intact. Paranasal sin uses and mastoid air cells as visualized are normal. IMPRESSION: NO ACUTE ABNORMALITY. NO SIGNIFICANT ABNORMALITY EVIDENT.
== END | disposition home or self-care (01) ==
LOC: RADCTMAIN 15:22
PROVIDERS: ATTEND Psychiatry & Neurology Neurology
DX: I77.1 Stricture of artery (principal); G20 Parkinson's disease; Z13.89 Encounter for screening for other disorder
CPT/HCPCS: 82565; 84520; 70496; 70450; 36415; Q9967

== ENCOUNTER → 2019-04-28 | Outpatient (CLI) | payer MEDICARE, OTHER ==
[2019-04-28 16:35] LABS: Chol/HDL Ratio 2.77; LDL Cholesterol,Calculated 78.8 mg/dL (0.0-131.0); VLDL Calculation 13.2 mg/dL (5.00-40.00)
== END | disposition home or self-care (01) ==
LOC: LABWHC1 08:54
PROVIDERS: ATTEND Internal Medicine Cardiovascular Disease
DX: E78.2 Mixed hyperlipidemia (principal)
CPT/HCPCS: 36415; 80061; 84450; 84460

== ENCOUNTER 2019-06-15 08:28 | Day surgery (SDC) | payer MEDICARE, OTHER ==
[2019-06-12 14:25] VITALS: BMI 26.6
[~2019-06-15 08:28] MED LIST changes: -ALPRAZolam 0.25 MG TAB PO PRN; -ALPRAZolam 0.5 MG TAB PO PRN; -ASPIRIN 325 MG TAB PO STA; -ATORVASTATIN 80 MG TAB PO STA; +LACTATED RINGERS 1,000 ML IV SCH; +LIDOCAINE 1% 20 ML VIAL (10MG/ML) FOR IV START INTRADERMA PRN; -NITROGLYCERIN SL TABS 0.4 MG TAB SUBLINGUAL PRN; -SODIUM CHLORIDE 0.9% 1,000 ML in EMPTY BAG 1 BAG IV ONE
[2019-06-15 08:58] VITALS: TEMP 97.3
[2019-06-15] MEDS ORDERED: ePHEDrine SULFATE/0.9% NACL/PF 50 MG/5 ML SYRINGE IV ONE (09:20)
[2019-06-15] MEDS ORDERED: PROPOFOL 10 MG/ML 20 ML VIAL IV ONE (09:20)
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
--- NOTE | 2019-06-15 09:47 | P.PCN ---
Date of Procedure: 06/15/19 Description of Procedure: PREOPERATIVE DIAGNOSIS: Personal history of colon polyps Colonoscopy screening POSTOPERATIVE DIAGNOSIS: Personal history of colon polyps Colonoscopy screening Tubular adenoma transverse colon Sigmoid diverticulosis Internal hemorrhoids, grade 3 OPERATION: Colonoscopy to the ileocecal valve and appendiceal orifice. Colonoscopy with hot snare polypectomies Colonoscopy with cold forceps biopsies SURGEON: Lola Hardy MD. ANESTHESIA: MAC. INDICATIONS: The patient is an 73-year-old male who presents with personal history of colon polyps. Last colonoscopy within 5 years. Benefits and risks were described and informed consent was obtained. DESCRIPTION OF PROCEDURE: The patient had undergone Suprep. He had been brought into the operating room and laid in the left lateral decubitus position. After adequate intravenous sedation, the rectum was examined with 2% lidocaine jelly. The prostate fossa was unremarkable. External hemorrhoids were encountered. The rectal tone was within normal limits. No lesions were palpated in the rectal vault. An Olympus colonoscope was advanced until the ileocecal valve and appendiceal orifice were clearly viewed. The prep was fair. Sigmoid diverticulosis was encountered. Multiple colonic polyps were found and snare polypectomy. No evidence of focal colitis was found. Retroflexion of the scope demonstrated grade 3 internal hemorrhoids without active bleeding or inflammation. The colon was desufflated. The patient had tolerated the procedure well. Withdrawal time was over 6 minutes. FINDINGS: Aronchick preparation quality scale 3 (1-5) Internal hemorrhoids, grade 3 External hemorrhoids, grade 3. No arteriovenous malformations. Sigmoid diverticulosis with mild diverticulitis Removal of 4 polyps: - Snare polypectomy mid transverse colon, 8 mm tubulovillous adenoma polyp. - Cold forceps biopsy at ascending colon, 4 mm polyp. - Cold forceps biopsy at ileocecal valve, 5 mm polyp. - Cold forceps biopsy at mid transverse colon, 4 mm polyp. RECOMMENDATIONS: Repeat colonoscopy in 3 years, 2022 Plan - Discharge Summary Discharge Rx Participant: No New Discharge Prescriptions: Continue Primidone [Mysoline] 75 mg PO HS Hydrochlorothiazide 25 mg PO QAM Carbidopa/Levodopa [Sinemet 25-100 mg] 1 tab PO BID Simvastatin [Zocor] 40 mg PO HS Enalapril [Vasotec] 10 mg PO QAM Omeprazole [PriLOSEC] 40 mg PO QAM Warfarin [Coumadin] 10 mg PO MOFR Acetaminophen Tab [Tylenol] 325 - 650 mg PO Q6H PRN PRN Reason: Pain Warfarin [Coumadin] 7.5 mg PO SUTUWETHSA Aspirin [Adult Low Dose Aspirin EC] 81 mg PO DAILY Discharge Medication List Carbidopa/Levodopa [Sinemet 25-100 mg] 1 tab PO BID 06/17/15 [History] Enalapril [Vasotec] 10 mg PO QAM 06/17/15 [History] Hydrochlorothiazide 25 mg PO QAM 06/17/15 [History] Primidone [Mysoline] 75 mg PO HS 06/17/15 [History] Simvastatin [Zocor] 40 mg PO HS 06/17/15 [History] Omeprazole [PriLOSEC] 40 mg PO QAM 04/19/17 [History] Warfarin [Coumadin] 10 mg PO MOFR 08/30/18 [History] Acetaminophen Tab [Tylenol] 325 - 650 mg PO Q6H PRN 12/21/18 [History] Warfarin [Coumadin] 7.5 mg PO SUTUWETHSA 06/12/19 [History] Aspirin [Adult Low Dose Aspirin EC] 81 mg PO DAILY 06/15/19 [History] Follow up Appointment(s)/Referral(s): Lola Hardy MD [STAFF PHYSICIAN] - As Needed Patient Instructions/Handouts: Hemorrhoids (DC), Diverticulosis (GEN), Colorectal Polyps (GEN), Diverticulosis Diet (GEN) Activity/Diet/Wound Care/Special Instructions: Repeat colonoscopy 3 years, 2022 Discharge Disposition: HOME SELF-CARE
[2019-06-15 09:53] VITALS: PULSE 87
[2019-06-15 10:09] VITALS: BP 116/68; RESP 16
== END 2019-06-15 11:45 | disposition home or self-care (01) ==
LOC: ORWHC2ENDO 08:28
PROVIDERS: ATTEND Surgery Plastic and Reconstructive Surgery
DX: Z12.11 Encounter for screening for malignant neoplasm of colon (principal); D12.2 Benign neoplasm of ascending colon; D12.3 Benign neoplasm of transverse colon; K57.30 Diverticulosis of large intestine without perforation or abscess without bleeding; K64.2 Third degree hemorrhoids; K64.4 Residual hemorrhoidal skin tags; Z86.010 Personal history of colon polyps; G20 Parkinson's disease; I48.91 Unspecified atrial fibrillation; I10 Essential (primary) hypertension; E78.5 Hyperlipidemia, unspecified; I25.2 Old myocardial infarction; J44.9 Chronic obstructive pulmonary disease, unspecified; H40.9 Unspecified glaucoma; H91.93 Unspecified hearing loss, bilateral; M19.90 Unspecified osteoarthritis, unspecified site; K21.9 Gastro-esophageal reflux disease without esophagitis; Z86.73 Personal history of transient ischemic attack (TIA), and cerebral infarction without residual deficits; Z95.0 Presence of cardiac pacemaker; Z79.899 Other long term (current) drug therapy; Z79.01 Long term (current) use of anticoagulants; Z79.82 Long term (current) use of aspirin; Z88.8 Allergy status to other drugs, medicaments and biological substances; Z85.46 Personal history of malignant neoplasm of prostate; Z90.79 Acquired absence of other genital organ(s); Z87.891 Personal history of nicotine dependence; Z90.49 Acquired absence of other specified parts of digestive tract; Z98.890 Other specified postprocedural states
CPT/HCPCS: 88305; 45380; 45385; J2704

== ENCOUNTER → 2021-08-18 | Outpatient (CLI) | payer MEDICARE, OTHER ==
[2021-08-18 15:09] LABS: T4, Free (Free Thyroxine) 1.21 ng/dL (0.800-1.800)
== END | disposition home or self-care (01) ==
LOC: LABWHC1 08:14
PROVIDERS: ATTEND Psychiatry & Neurology Neurology
DX: Z79.899 Other long term (current) drug therapy (principal); R25.1 Tremor, unspecified
CPT/HCPCS: 36415; 82607; 84439; 84443

== ENCOUNTER 2021-09-19 10:51 | Day surgery (SDC) | payer MEDICARE ==
[2021-09-19] MEDS ORDERED: SODIUM CHLORIDE 0.9% 1,000 ML IV SCH (11:00)
[2021-09-19] MEDS ORDERED: SODIUM CHLORIDE 0.9% 500 ML 500 ML IV ONE (11:02)
[2021-09-19 11:17] VITALS: RESP 16; TEMP 98.2
[2021-09-19 11:42] LABS: INR 2.3 (<1.2); Prothrombin Time 22.6 sec (9.0-12.0)
[2021-09-19] MEDS ORDERED: IOPAMIDOL-370 50ML BTL INJ ONE (12:48)
--- NOTE | 2021-09-19 12:59 | P.EPPROC ---
- EP Procedure Note Electrophysiology Procedure Note: Diagnosis RV lead malfunction with low impedance and non-capture of the RV lead Patient is a dual-chamber pacemaker from the left side Cinefluoroscopy of the leads revealed that the original access was likely subclavian access Atrial and RV leads in good position on fluoroscopy Venogram of the left upper extremity revealed a long area of occlusion in the subclavian vein with bridging collaterals Venogram of the right upper extremity performed and a patent subclavian and SVC noted Plan Options include laser lead extraction of the RV lead with implantation of a new lead via this route Or Implantation of a right-sided RV lead and tunneling through under the skin to the left side
[2021-09-19 13:11] VITALS: BP 169/75; PULSE 75
== END 2021-09-19 13:35 | disposition home or self-care (01) ==
LOC: CATHEP 10:51
PROVIDERS: ATTEND Internal Medicine Clinical Cardiac Electrophysiology
DX: T82.110A Breakdown (mechanical) of cardiac electrode, initial encounter (principal); I49.5 Sick sinus syndrome; I25.10 Atherosclerotic heart disease of native coronary artery without angina pectoris; I25.82 Chronic total occlusion of coronary artery; I48.3 Typical atrial flutter; E78.2 Mixed hyperlipidemia; Z20.822 Contact with and (suspected) exposure to COVID-19; F17.200 Nicotine dependence, unspecified, uncomplicated; Z82.49 Family history of ischemic heart disease and other diseases of the circulatory system; Z79.01 Long term (current) use of anticoagulants; Z79.82 Long term (current) use of aspirin; Z88.8 Allergy status to other drugs, medicaments and biological substances; Z79.899 Other long term (current) drug therapy
CPT/HCPCS: 36005; 75820; 85610; 87635; Q9967

== ENCOUNTER → 2021-10-04 | Outpatient (CLI) | payer MEDICARE ==
[2021-10-04 23:08] LABS: HCT 48.9 % (39.6-50.0); HGB 15.4 g/dL (13.0-17.0); MCH 29.8 pg (27.0-32.0); MCHC 31.5 g/dL (32.0-37.0); MCV 94.6 fL (80.0-97.0); Mean Platelet Volume 12.8 fL (9.5-12.2); NRBC Per 100 WBC 0 /100 WBCS (0.0-0.0); Platelet Count 199 X 10*3/uL (140-440); RBC 5.17 X 10*6/uL (4.40-5.60); RDW 13.3 % (11.5-14.5); WBC 8.02 X 10*3/uL (4.50-10.00)
[2021-10-04 23:17] LABS: African American GFR (CKD) 96.5 (60.0-200.0); Anion Gap 11.7 mmol/L (10.00-18.00); Blood Urea Nitrogen 16.5 mg/dL (9.0-27.0); Carbon Dioxide 24.3 mmol/L (20.0-27.5); Non-African American GFR(CKD) 83.3 (60.0-200.0); Potassium 4.1 mmol/L (3.5-5.5)
== END | disposition home or self-care (01) ==
LOC: LABPAT 09:08
PROVIDERS: ATTEND Internal Medicine Clinical Cardiac Electrophysiology
DX: Z01.812 Encounter for preprocedural laboratory examination (principal); I45.9 Conduction disorder, unspecified
CPT/HCPCS: 80051; 82565; 84520; 85027

== ENCOUNTER 2021-10-14 10:37 | Day surgery (SDC) | payer MEDICARE ==
[2021-10-14] MEDS ORDERED: VANCOMYCIN 1,250 MG in SODIUM CHLORIDE 0.9% 250 ML IVPB ONE (11:00)
[2021-10-14] MEDS ORDERED: SODIUM CHLORIDE 0.9% 1,000 ML IV SCH (11:00)
[2021-10-14] MEDS ORDERED: ceFAZolin 1 GM in SODIUM CHLORIDE 0.9% IRRIG BTL 250 ML IRRIGATION PRN (11:00)
[2021-10-14 12:03] LABS: INR 2.2 (<1.2); Prothrombin Time 21.7 sec (9.0-12.0)
[2021-10-14] MEDS ORDERED: NEOSTIGMINE 1 MG/ML 10 ML VIAL ONE (14:38)
[2021-10-14] MEDS ORDERED: LIDOCAINE 2% INJ 20 MG/ML (2 ML VIAL) ONE (14:38)
[2021-10-14] MEDS ORDERED: GLYCOPYRROLATE 0.2 MG/ML 2 ML VIAL ONE (14:38)
[2021-10-14] MEDS ORDERED: HYDROmorphone (PF) 1 MG/ML ONE (14:38)
[2021-10-14] MEDS ORDERED: SUCCINYLCHOLINE CHLORIDE 100 MG/5 ML SYR IV ONE (14:38)
[2021-10-14] MEDS ORDERED: ROCURONIUM 10 MG/ML (5 ML VIAL) IV ONE (14:38)
[2021-10-14] MEDS ORDERED: fentaNYL (PF) 50 MCG/ML 2 ML AMP ONE (14:38)
[2021-10-14] MEDS ORDERED: ePHEDrine 50 MG/ML 1 ML VIAL ONE (14:38)
[2021-10-14] MEDS ORDERED: PROPOFOL 10 MG/ML 20 ML VIAL IV ONE (14:38)
[2021-10-14] MEDS: IOPAMIDOL-370 50ML BTL INJ ONE ×2 (15:01→16:36)
[2021-10-14] MEDS ORDERED: LIDOCAINE 1% INJ 10MG/ML (30 ML VIAL-PF) SQ ONE ×3 (15:42→16:41)
[2021-10-14] MEDS ORDERED: SODIUM CHLORIDE 0.9% 500 ML 500 ML IV ONE (18:16)
[2021-10-14] MEDS ORDERED: ACETAMINOPHEN IV (For NPO) 1,000 MG in EMPTY BAG 1 BAG IVPB ONE (18:39)
[2021-10-14] MEDS ORDERED: ACETAMINOPHEN TAB 325 MG TAB PO PRN (18:39)
--- NOTE | 2021-10-14 18:56 | P.EPPROC ---
- EP Procedure Note Electrophysiology Procedure Note: Diagnosis Nonfunctioning RV lead from the original left-sided implant, dual-chamber pacemaker Subclavian vein occlusion, left side Possible innominate-SVC junction occlusion Dual-chamber pacemaker at [facility] Need for RV pacing and atrial pacing Procedure details Under general anesthesia both the left and right sides were prepped and draped per protocol. IV vancomycin and later IV Was Given An Incision Was Made on the Left Pectoral Area, over the previous incision This is currently on telemetry with generator The generator and the leads were freed from the surrounding scar tissue Successful subclavian vein access was obtained despite subclavian vein occlusion This is a more central access Pulse ox remained stable no evidence for pneumothorax However in the angioplasty wire was passed along the innominate vein there is clear evidence for occlusion at the innominate SVC junction A 4-Mongolian sheath was placed in the subclavian vein and a venogram was performed This confirmed complete occlusion the SVC innominate junction This is a long area of occlusion And would also carry a risk of venous tear if laser lead extraction was attempted The right pectoral area which was already prepped and draped and a previous venogram had shown a patent subclavian vein draining into the SVC 2 venous accesses were obtained with some difficulty at the level of the second rib A decision was made to implant the RV lead as well as an atrial lead Since the likelihood of future subclavian crush of the left-sided atrial lead becoming manifest in the next few years was substantial, given the nature of the scarring and the original character of the access Sheaths were placed in the right subclavian vein Atrial lead was positioned in the right atrial appendage, screw-in Medtronic model #5076, 45 cm in length Excellent Current of injury noted, P waves 1.7 mV, pacing impedance 665 ohms and pacing threshold 0.5 V at 0.4 ms 10 V test negative Medtronic RV lead, model 5076, 52 cm in length R waves 7.6 ohms, pacing impedance 570 ohms and pacing threshold 0.5 V at 0.4 ms 10 V test negative New generator implanted, Medtronic NORBERT XT DR MRI Leads connected Tyrx pouch used Wound closed in 3 layers and dressed per protocol line device programmed to AAI R-DDDR mode 60-1:30 bpm The left-sided pocket was cleaned and irrigated The chronic generator which is at [facility] was explanted The leads were cleaned, And secured to the pectoralis muscle At Tyrx pouch was placed in the pocket was the left side to Wound was closed in 3 layers and dressed per protocol Result Successful dual-chamber pacemaker implantation from the right side The left-sided leads were completely abandoned and the old generator was explanted Procedures performed Left-sided atrial and RV lead And secured Left-sided chronic generator explanted New dual-chamber pacemaker, right-sided, implanted
--- NOTE | 2021-10-14 18:58 | P.PCN ---
Preoperative Diagnosis: Extended procedure duration This is a long procedure Left-sided subclavian vein access was obtained with difficulty despite the fact that the patient had a long subclavian stenosis, complete Multiple attempts were made to different biased across the innominate SVC occlusion but was unsuccessful The right-sided access was difficult given the entry point of the axillary vein to a very high subclavian vein The second rib access was obtained for both accesses on the right side
--- NOTE | 2021-10-14 19:01 | P.PRLE ---
RE: Antonino Menon Dear Jovon Menon underwent implantation of a brand-new right-sided dual-chamber pacemaker The left-sided pacemaker was M band and completely. The right-sided RV lead is probably undergone subclavian crush and is quite likely that the atrial lead in the side will also meet the same fate over the next few years The patient SHE well without any acute complications He will continue to follow with you and Dr. Santa as before Thank you for entrusting me with the care of the patient Warm regards Sincerely Alan Soto
[2021-10-14] MEDS: CARBIDOPA-LEVODOPA 25-100 MG 1 EACH TAB PO SCH (20:51)
[2021-10-14] MEDS: FAMOTIDINE 20 MG TAB PO SCH (20:51)
[2021-10-14] MEDS ORDERED: PRIMIDONE 50 MG TAB PO SCH (21:00)
[2021-10-14] MEDS ORDERED: ATORVASTATIN 20 MG TAB PO SCH (21:00)
[2021-10-15 01:35] VITALS: RESP 18
[2021-10-15] MEDS ORDERED: METOPROLOL SUCCINATE (ER) 25 MG TAB.ER.24H PO SCH (09:00)
[2021-10-15] MEDS ORDERED: lisinopriL 20 MG TAB PO SCH (09:00)
[2021-10-15] MEDS ORDERED: hydroCHLOROthiazide 25 MG TAB PO SCH (09:00)
[2021-10-15] MEDS: FAMOTIDINE 20 MG TAB PO SCH (09:02)
[2021-10-15] MEDS: CARBIDOPA-LEVODOPA 25-100 MG 1 EACH TAB PO SCH (09:02)
[2021-10-15 09:07] VITALS: BP 162/79; PULSE 57; TEMP 97.9
--- NOTE | 2021-10-15 11:26 | P.DS ---
Providers Attending physician: Alan Soto Primary care physician: Jovon Latham [facility] Course: Patient is sitting up in a chair No chest discomfort dizziness lightheadedness No palpitations Both incision sites in the right and left pectoral areas seem to be healing well no stroke age no hematoma On examination Afebrile 97.9F pulse rate in the 60s Blood pressure 131/72 mmHg Breath sounds are clear no rhonchi no crackles Impression Non-functioning RV lead on the left side Both lesions on the left side were abandoned, generator was removed This generator was at [facility] A new dual-chamber pacemaker was implanted from the right side successfully Venous access was at the level of the second rib, given the anatomy of the subclavian vein To avoid subclavian crush Plan IV antibiotics administered Chest x-ray shows 2 new leads from the right side Plan Discharge home today in follow-up in the device clinic and with Dr. Santa in a week Plan - Discharge Summary Discharge Rx Participant: No New Discharge Prescriptions: No Action Primidone [Mysoline] 50 mg PO HS hydroCHLOROthiazide 25 mg PO QAM Carbidopa/Levodopa [Sinemet 25-100 mg] 1 tab PO BID Simvastatin [Zocor] 40 mg PO HS Enalapril [Vasotec] 10 mg PO QAM Warfarin [Coumadin] 7.5 mg PO HS Metoprolol Succinate (ER) [Toprol Xl] 25 mg PO DAILY Famotidine [Pepcid] 20 mg PO BID Discharge Medication List Carbidopa/Levodopa [Sinemet 25-100 mg] 1 tab PO BID 06/17/15 [History] Enalapril [Vasotec] 10 mg PO QAM 06/17/15 [History] Primidone [Mysoline] 50 mg PO HS 06/17/15 [History] Simvastatin [Zocor] 40 mg PO HS 06/17/15 [History] hydroCHLOROthiazide 25 mg PO QAM 06/17/15 [History] Warfarin [Coumadin] 7.5 mg PO HS 06/12/19 [History] Famotidine [Pepcid] 20 mg PO BID 10/14/21 [History] Metoprolol Succinate (ER) [Toprol Xl] 25 mg PO DAILY 10/14/21 [History] Follow up Appointment(s)/Referral(s): Cheikh Bhakta MD [STAFF PHYSICIAN] - 10/23/21 10:30 am (appointment made at the main office) Patient Instructions/Handouts: Pacemaker (GEN) Activity/Diet/Wound Care/Special Instructions: 1. Keep dressing dry and clean. Do not remove dressing. 2. You may cover dressing with saran or cling wrap to shower. No baths. 3. Avoid using your right arm. No reaching, pulling, pulling, lifting. Do not raise arm above heart level. 4. Call your doctor if you notice any bleeding, swelling, increased pain, or drainage of cloudy fluid. 5. You may perform pendulum exercises to prevent frozen shoulder. 6. Follow up in the office for a Device check as scheduled for you.
--- NOTE | 2021-10-15 14:13 | XR ---
EXAMINATION TYPE: XR chest 1V portable DATE OF EXAM: 10/15/2021 COMPARISON: X-ray dated 01/30/2019 HISTORY: Lead placement TECHNIQUE: Single frontal view of the chest is obtained. FINDINGS: Interval insertion of a right upper chest wall dual-lead pacemaker. Removal of the previously seen le ft upper chest wall pacemaker with residual leads left in place. Slightly increased density in the left lower to mid lung zone, underlying infection can't be excluded . Unremarkable remainder of the lungs. No sizable pleural effusion or definite pneumothorax. No gross cardiomegaly. Aortic atherosclerotic c alcifications. Degenerative changes of thoracic spine. IMPRESSION: As above.
== END 2021-10-15 12:55 | disposition home or self-care (01) ==
LOC: CATHEP 10:37 → 6NMEDSUR 18:50 → CATHEP 10-15 12:55
PROVIDERS: ATTEND Internal Medicine Clinical Cardiac Electrophysiology
DX: Z45.010 Encounter for checking and testing of cardiac pacemaker pulse generator [battery] (principal); I49.5 Sick sinus syndrome; T82.190A Other mechanical complication of cardiac electrode, initial encounter; I82.B12 Acute embolism and thrombosis of left subclavian vein; I25.10 Atherosclerotic heart disease of native coronary artery without angina pectoris; I25.82 Chronic total occlusion of coronary artery; I48.3 Typical atrial flutter; I10 Essential (primary) hypertension; E78.2 Mixed hyperlipidemia; F17.210 Nicotine dependence, cigarettes, uncomplicated; Z20.822 Contact with and (suspected) exposure to COVID-19; Z79.01 Long term (current) use of anticoagulants; Z79.899 Other long term (current) drug therapy; Z79.82 Long term (current) use of aspirin; Z88.8 Allergy status to other drugs, medicaments and biological substances; Z82.49 Family history of ischemic heart disease and other diseases of the circulatory system
CPT/HCPCS: 33208; 33233; 85610; 87635; 71045; C1769 ×3; C1892 ×2; C1898; C1785; J3370; J2710; J0690 ×2; J2001 ×2; J3010; J1170; J0330; J2704; Q9967

== ENCOUNTER → 2022-02-27 | Outpatient (CLI) | payer MEDICARE, OTHER ==
[2022-02-27 16:59] LABS: ALT 11 U/L (10-49); AST 18 U/L (14-35); LDL Cholesterol,Calculated 52.8 mg/dL (0.0-131.0)
== END | disposition home or self-care (01) ==
LOC: LABWHC1 09:35
PROVIDERS: ATTEND Internal Medicine Cardiovascular Disease
DX: E78.2 Mixed hyperlipidemia (principal)
CPT/HCPCS: 36415; 80061; 84450; 84460

== ENCOUNTER → 2022-04-04 | Outpatient (CLI) | payer MEDICARE, OTHER ==
[2022-04-04 13:11] LABS: Basophils # (A) 0.08 X 10*3/uL (0.00-0.10); Basophils % (A) 0.9 %; Eosinophils % (A) 2.2 %; HCT 47.4 % (39.6-50.0); HGB 15.2 g/dL (13.0-17.0); Immature Grans, Automated 0.2 %; Lymphocytes # (A) 2.32 X 10*3/uL (0.90-5.00); MCH 30.6 pg (27.0-32.0); MCHC 32.1 g/dL (32.0-37.0); MCV 95.4 fL (80.0-97.0); Mean Platelet Volume 11.6 fL (9.5-12.2); Monocytes # (A) 0.74 X 10*3/uL (0.20-1.00); Monocytes % (A) 8.3 %; NRBC Per 100 WBC 0 /100 WBCS (0.0-0.0); Neutrophils # (A) 5.55 X 10*3/uL (1.80-7.70); Neutrophils % (A) 62.4 %; Platelet Count 187 X 10*3/uL (140-440); RBC 4.97 X 10*6/uL (4.40-5.60); RDW 13.7 % (11.5-14.5); WBC 8.91 X 10*3/uL (4.50-10.00)
[2022-04-04 13:47] LABS: ALT 17 U/L (10-49); AST 27 U/L (14-35); African American GFR (CKD) 96.5 (60.0-200.0); Albumin 4.2 g/dL (3.8-4.9); Albumin/Globulin Ratio 1.31 (1.60-3.17); Alkaline Phosphatase 124 U/L (41-126); BUN/Creat Ratio 14.56 Ratio (12.00-20.00); Blood Urea Nitrogen 13.1 mg/dL (9.0-27.0); Calcium 9.5 mg/dL (8.7-10.3); Carbon Dioxide 25.8 mmol/L (20.0-27.5); Chloride 104 mmol/L (96-109); Chol/HDL Ratio 2.26 Ratio; Globulin 3.2 g/dL (1.6-3.3); Glucose 90 mg/dL (70-110); LDL Cholesterol,Calculated 65.5 mg/dL (0.0-131.0); Non-African American GFR(CKD) 83.3 (60.0-200.0); Sodium 140 mmol/L (135-145); Total Protein 7.4 g/dL (6.2-8.2); VLDL Calculation 13.18 mg/dL (5.00-40.00)
== END | disposition home or self-care (01) ==
LOC: LABWHC1 08:24
PROVIDERS: ATTEND Family Medicine
DX: I10 Essential (primary) hypertension (principal); Z85.46 Personal history of malignant neoplasm of prostate
CPT/HCPCS: 36415; 80053; 80061; 83036; 84153; 85025

== ENCOUNTER → 2023-03-02 | Outpatient (CLI) | payer MEDICARE, OTHER ==
[2023-03-02 15:42] LABS: ALT 16 U/L (10-49); AST 19 U/L (14-35); Chol/HDL Ratio 2.37 Ratio; VLDL Calculation 12.38 mg/dL (5.00-40.00)
== END | disposition home or self-care (01) ==
LOC: LABWHC1 08:10
PROVIDERS: ATTEND Internal Medicine Cardiovascular Disease
DX: E78.2 Mixed hyperlipidemia (principal)
CPT/HCPCS: 36415; 80061; 84450; 84460